=== PATIENT | male | born 1985 | race African-American/Black ===

== ENCOUNTER 2025-01-13 12:45 | Outpatient (CLI) | payer BC, SELFPAY ==
[2025-01-13 13:35] LABS: HDL Direct 34 mg/dL; Triglycerides 364 mg/dL (<150)
[2025-01-13 13:54] LABS: Cholesterol 362 mg/dL (0-200)
--- OUTSIDE RECORDS SUMMARY | 2025-01-13 14:21 | XMS_ITS | Clinical Summary ---
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
--- OUTSIDE RECORDS SUMMARY | 2025-01-13 14:21 | XMS_ITS | Clinical Summary ---
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 Dissolve tablet on top of tongue, then swallow with saliva. 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 Gender Identity Not on file Sexual Orientation Not on file Last Filed Vital Signs Vital Sign Reading Time Taken Comments Blood Pressure 129/82 04/05/2020 1:35 PM SENIOR RESEARCH ANALYST Pulse 65 04/05/2020 1:35 PM SENIOR RESEARCH ANALYST Temperature 36.4 C (97.6 F) 04/05/2020 1:35 PM SENIOR RESEARCH ANALYST Respiratory Rate 18 04/05/2020 1:35 PM SENIOR RESEARCH ANALYST Oxygen Saturation 100% 04/05/2020 1:35 PM SENIOR RESEARCH ANALYST Inhaled Oxygen Concentration - - Weight 112.9 kg (249 lb) 04/05/2020 1:35 PM SENIOR RESEARCH ANALYST Height 182.9 cm (6') 04/05/2020 1:35 PM SENIOR RESEARCH ANALYST Body Mass Index 33.77 04/05/2020 1:35 PM SENIOR RESEARCH ANALYST Plan of Treatment Health Maintenance Due Date Last Done Comments HEPATITIS B VACCINES (1 of 3 - 19+ 3-dose series) 09/2003 HPV VACCINES (1 - 3-dose SCDM series) 12/28/2011 INFLUENZA VACCINE (#1) 2024 DTAP/TDAP/TD VACCINES (2 - Td or Tdap) 11/04/2029 Insurance [facility]
--- OUTSIDE RECORDS SUMMARY | 2025-01-13 14:21 | XMS_ITS | Clinical Summary ---
Author Organization [facility] Address [address] [place] [address] Care Team Providers Care Sales Vendor Name Role Phone Grady Yarbrough MD Primary Care Provider [phone] Source Comments [facility],non-owned Affiliates and Associated Physician Practices is amultiple site organization consisting of ambulatory clinics and hospital sitesin [place], [place], [place] and [place]. This disclosure is being madepursuant to the Care Everywhere program and may not contain all information available regarding this patient. Last updated 17.[facility] Allergies No known active allergies Medications * Be aware that medications may not be up to date on this document. Alwaysverify current medications with the patient. 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 Gender Identity Not on file Sexual Orientation Not on file Last Filed Vital Signs Vital Sign Reading Time Taken Comments Blood Pressure 157/97 11/05/2019 11:31 PM CDT Pulse 100 11/05/2019 10:30 PM CDT Temperature 36.9 C (98.4 F) 11/05/2019 10:30 PM CDT Respiratory Rate 15 09/09/2014 9:23 PM CDT Oxygen Saturation 98% 11/06/2019 12:25 AM CDT Inhaled Oxygen Concentration - - Weight 113.4 kg (250 lb) 11/05/2019 10:30 PM CDT Height 185.4 cm (6' 1) 11/05/2019 10:30 PM CDT Body Mass Index 32.98 11/05/2019 10:30 PM CDT Plan of Treatment Health Maintenance Due Date Last Done Comments LIPID TESTING 1984 HIV SCREENING 12/28/1999 HEPATITIS C SCREENING 12/23/2002 HEPATITIS B VACCINE (1 of 3 - 19+ 3-dose series) 12/28/2003 HPV VACCINE (1 - 3-dose SCDM series) 12/28/2011 DEPRESSION SCREENING 02/20/2024 COVID-19 VACCINE (1 - 2024-2 6 season) 2024 INFLUENZA VACCINE (#1) 2024 DTAP/TDAP/TD VACCINES (2 - T d or Tdap) 11/04/2029 11/05/2019 ZOSTER VACCINE (1 of 2) 2034 HIB VACCINE Aged Out No longer eligi ble based on patient's age to complete this topic MENINGOCOCCAL (Group B) VACC INE SHARED DECISION-MAKING Aged Out No longer eligibl e based on patient's age to complete this topic MENINGOCOCCAL GROUPS A/C/Y/W VACCINE Aged Out No longer eligible b ased on patient's age to complete this topic PNEUMOCOCCAL VACCINE Aged Out No long er eligible based on patient's age to complete this topic Insurance [employer] Care Teams Sales Vendor Relationship Specialty Start Date End Date Grady Yarbrough MD [address] [id number] PCP - General Internal Medicine 09/09/14
--- OUTSIDE RECORDS SUMMARY | 2025-01-13 14:21 | XMS_ITS | Encounter Summary ---
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 Name Role Phone Unavailable Primary Care Provider Unavailabl e Prior Encounters Date Type Department Care Team Description 03/10/2019 Converted CPS Chart Documents [facility] [id number] [id number] <No scans attached> 03/10/2019 Converted 13x Documents [facility] [id number] [id number] <No scans attached> Plan of Treatment Not on file Procedures Procedure Name Priority Date/Time Associated Diagnosis Comments COMPREHENSIVE ORAL EVALUATION - NEW OR ESTABLISHED PATIENT Routine 04/08/2020 2:00 AM SIPHONER PANORAMIC RADIOGRAPHIC IMAGE Routine 04/08/2020 2:00 AM SIPHONER INTRAORAL - COMPREHENSIVE SERIES OF RADIOGRAPHIC IMAGES Routine 04/08/2020 2:00 AM SIPHONER INTRAORAL PHOTO Routine 04/08/2020 2:00 AM SIPHONER INTRAORAL PHOTO Routine 04/08/2020 2:00 AM SIPHONER INTRAORAL PHOTO Routine 04/08/2020 2:00 AM SIPHONER INTRAORAL PHOTO Routine 04/08/2020 2:00 AM SIPHONER PERIODIC ORAL EVALUATION - ESTABLISHED PATIENT Routine 10/30/2016 2:00 AM CDT BITEWINGS - FOUR RADIOGRAPHIC IMAGES Routine 10/30/2016 2:00 AM CDT SINGLE X-RAY Routine 10/30/2016 2:00 AM CDT SINGLE X-RAY Routine 10/30/2016 2:00 AM CDT CANCELLED APPOINTMENT Routine 03/06/2016 2:00 AM SIPHONER CANCELLED APPOINTMENT Routine 03/06/2016 2:00 AM SIPHONER UL PERIODONTAL SCALING AND ROOT PLANING - FOUR OR MORE TEETH PER QUADRANT Routine 09/22/2015 2:00 AM CDT LL PERIODONTAL SCALING AND ROOT PLANING - FOUR OR MORE TEETH PER QUADRANT Routine 09/22/2015 2:00 AM CDT ORAL HYGIENE INSTRUCTIONS Routine 2015 2:00 AM CDT LL SAL DECON/QD Routine 09/22/2015 2:00 AM CDT UL SAL DECON/QD Routine 09/22/2015 2:00 AM CDT UL ANTIBACT IRR/QUAD Routine 09/22/2015 2:00 AM CDT LL ANTIBACT IRR/QUAD Routine 09/22/2015 2:00 AM CDT UR PERIODONTAL SCALING AND ROOT PLANING - FOUR OR MORE TEETH PER QUADRANT Routine 09/21/2015 2:00 AM CDT LR PERIODONTAL SCALING AND ROOT PLANING - FOUR OR MORE TEETH PER QUADRANT Routine 09/21/2015 2:00 AM CDT ORAL HYGIENE INSTRUCTIONS Routine 2015 2:00 AM CDT LR SAL DECON/QD Routine 09/21/2015 2:00 AM CDT UR SAL DECON/QD Routine 09/21/2015 2:00 AM CDT UR ANTIBACT IRR/QUAD Routine 09/21/2015 2:00 AM CDT LR ANTIBACT IRR/QUAD Routine 09/21/2015 2:00 AM CDT COMPREHENSIVE ORAL EVALUATION - NEW OR ESTABLISHED PATIENT Routine 08/30/2015 2:00 AM CDT PANORAMIC RADIOGRAPHIC IMAGE Routine 08/30/2015 2:00 AM CDT INTRAORAL - COMPREHENSIVE SERIES OF RADIOGRAPHIC IMAGES Routine 08/30/2015 2:00 AM CDT INTRAORAL PHOTO Routine 08/30/2015 2:00 AM CDT INTRAORAL PHOTO Routine 08/30/2015 2:00 AM CDT INTRAORAL PHOTO Routine 08/30/2015 2:00 AM CDT INTRAORAL PHOTO Routine 08/30/2015 2:00 AM CDT Visit Diagnoses Not on file
== END 2025-01-13 12:46 | disposition home or self-care (01) ==
PROVIDERS: PCP Physician Assistant; Visit Provider Physician Assistant
DX: E78.2 Mixed hyperlipidemia (principal)
CPT/HCPCS: 36415; 80061